=== PATIENT | male | born 1975 | race Asian ===

== ENCOUNTER → 2019-01-27 08:53 | Outpatient (CLI) | payer OTHER, SELFPAY ==
--- NOTE | 2019-01-27 | DI.MRI.S_ITS ---
PROCEDURE: MR CERVICAL SPINE WO CON INDICATIONS: Radiculopathy, cervical region TECHNIQUE: Noncontrast sagittal T1 spin echo and T2 fast spin echo, sagittal STIR, foraminal oblique sagittal T2 fast spin echo, and axial gradient echo or T2 fast spin echo through the cervical spine. COMPARISON: None. FINDINGS: Image quality: Excellent. Alignment and Curvature: There is normal bony alignment. Bone Marrow: Marrow demonstrates normal overall signal. Spinal Cord: Visualized spinal cord has normal size and signal. No cerebellar tonsillar herniation. Paraspinous Soft Tissues: No paravertebral masses. Prevertebral soft tissues are normal in thickness. C2-C3: Normal appearance. C3-C4: Preserved disc height. Mild disc desiccation. There is mild posterior disc bulge. The central canal is mildly narrowed. No foraminal stenosis. No definitive nerve root impingement. C4-C5: Preserved disc height. Mild disc desiccation. There is mild posterior disc bulge. A small posterior central annular fissure is noted. The central canal is mildly narrowed. No foraminal stenosis. No definitive nerve root impingement. C5-C6: Preserved disc height. Mild disc desiccation. There is disease posterior disc bulge and uncovertebral hypertrophy. The central canal is mildly narrowed. Mild bilateral foraminal stenosis. No definitive nerve root impingement. C6-C7: Preserved disc height. Mild disc desiccation. There is disease posterior disc bulge and posterior central disc protrusion. The central canal is mildly narrowed. No foraminal stenosis. No definitive nerve root impingement. C7-T1: Normal appearance. IMPRESSION: 1. Multilevel degenerative disc disease and facet arthropathy as described. 2. Mild central canal stenosis at C3-C4, C4-C5, C5-C6 and C6-C7. 3. Mild foraminal stenosis at C5-C6 bilaterally. Dictated by: Lilly Vigil M.D. on 01/27/2019 at 11:43 Approved by: Lilly Vigil M.D. on 01/27/2019 at 11:53
== END ==
PROVIDERS: PCP General Practice; Visit Provider General Practice
DX: M50.11 Cervical disc disorder with radiculopathy, high cervical region (principal); M47.22 Other spondylosis with radiculopathy, cervical region; M48.02 Spinal stenosis, cervical region
CPT/HCPCS: 72141